=== PATIENT | female | born 1985 | race American Indian/Alaskan Native ===

== ENCOUNTER 2023-12-30 20:23 | Emergency (ER) | payer MEDICAID | END 2023-12-30 22:21 | disposition left against medical advice (07) | LOC: DL.ED 20:23 | DX: Z53.21 Procedure and treatment not carried out due to patient leaving prior to being seen by health care provider (principal) ==

== ENCOUNTER 2024-02-06 18:07 | Emergency (ER) | payer MEDICAID ==
[2024-02-06 18:16] VITALS: BP 105/59; PULSE 85
== END 2024-02-06 18:45 | disposition left against medical advice (07) ==
LOC: DL.ED 18:07
DX: Z53.21 Procedure and treatment not carried out due to patient leaving prior to being seen by health care provider (principal)